=== PATIENT | male | born 1995 | race Caucasian/White ===

== ENCOUNTER 2022-04-03 09:10 | Emergency (ER) | payer OTHER ==
[2022-04-03] MEDS ORDERED: IBUPROFEN800 MG PO (11:07)
== END 2022-04-03 11:20 | disposition home or self-care (01) ==
LOC: ER1 09:10
DX: S93.401A Sprain of unspecified ligament of right ankle, initial encounter (principal); X50.9XXA Other and unspecified overexertion or strenuous movements or postures, initial encounter
CPT/HCPCS: 73610; 99283